=== PATIENT | female | born 1955 | race American Indian/Alaskan Native ===

== ENCOUNTER 2016-11-03 14:32 | Outpatient (CLI) | payer OTHER ==
--- NOTE | 2016-11-03 15:08 | XRay Report ---
ROUTINE CHEST, TWO VIEWS: HISTORY: Pneumonia, shortness of breath. The trachea, heart, mediastinal contour, lung shah and bony thorax are unremarkable. IMPRESSION: Unremarkable chest x-ray.
== END 2016-11-03 14:33 | disposition home or self-care (01) ==
LOC: SPVIMAG 14:32
PROVIDERS: ATTEND Family Medicine
DX: J18.9 Pneumonia, unspecified organism (principal)
CPT/HCPCS: 71020